=== PATIENT | female | born 1935 | race Caucasian/White ===

== ENCOUNTER 2019-07-24 13:01 | Emergency (ER) | payer MEDICARE ==
[~2019-07-24] VITALS: Ht 160 cm; Wt 54.0 kg
[~2019-07-24 13:01] MED LIST: MECL-159 PO
[2019-07-24 13:04] VITALS: BP 134/88
== END 2019-07-24 15:42 | disposition home or self-care (01) ==
LOC: ER 13:02
DX: M25.561 Pain in right knee (principal); M25.551 Pain in right hip; I25.10 Atherosclerotic heart disease of native coronary artery without angina pectoris; I25.2 Old myocardial infarction; Z98.890 Other specified postprocedural states; Z79.899 Other long term (current) drug therapy
CPT/HCPCS: 72170; 73564; 99284